=== PATIENT | female | born 1930 | race Hispanic/Latino ===

== ENCOUNTER → 2017-07-18 | Outpatient (CLI) | payer MEDICARE ==
[~2017-07-18] MED LIST: AMLODIPINE BESYL5 MG PO; AMMONIUM LACTA225 GM TP; BENZONATATE100 MG PO; CETIRIZINE; CRESTOR10 MG; LISINOPRIL10 MG PO; LOSARTAN POTAS100 MG PO; MACROBID 100 M100 MG PO; METOPROLOL SUCC25 MG PO; PRAVASTATIN SOD20 MG PO; TERBINAFINE HC250 MG PO; TIMOLOL; TRAVATAN Z5 ML OP; ULTRAM50 MG PO
--- NOTE | 2017-07-18 11:00 | Diagnostic Imaging Report ---
PROCEDURE: L-SPINE COMPLETE COMPARISON: Patients [facility], DX, SP LUMBAR AP \T\ LATERAL 2-3VWS, 12/23/2016, 10:39. INDICATIONS: SPONDYLOLYSIS FINDINGS: Multilevel degenerative changes are noted. The bones are osteopenic. Mild anterior listhesis of L4 on L5. 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 The paraspinal soft tissues are normal. CONCLUSION: No significant interval change with compression abnormality of T11. Boaz Allen D.O. Dictated by: Boaz Allen D.O. on 07/18/2017 at 11:01 Electronically approved by: Boaz Allen D.O. on 07/18/2017 at 11:01
--- NOTE | 2017-07-18 11:06 | Diagnostic Imaging Report ---
PROCEDURE:SACRUM X-RAY FINDINGS:Some sclerosis overlying the left SI joint is noted. Bony osteopenia is present. No acute abnormality or fracture. CONCLUSION:No acute abnormality. Boaz Allen D.O. Dictated by: Boaz Allen D.O. on 07/18/2017 at 11:08 Electronically approved by: oBaz Allen D.O. on 07/18/2017 at 11:08
== END ==
LOC: RAD 09:04
PROVIDERS: ATTEND Internal Medicine
DX: M43.07 Spondylolysis, lumbosacral region (principal)
CPT/HCPCS: 72110; 72220